=== PATIENT | female | born 1945 | race Caucasian/White ===

== ENCOUNTER 2016-03-03 05:32 | Inpatient (IN) | payer OTHER ==
[~2016-03-03] VITALS: Ht 162.6 cm; Wt 85.3 kg
[2016-03-03] VITALS (7 sets, daily range): BP systolic 93–130; BP diastolic 51–72
[~2016-03-03 05:32] MED LIST: AVELOX400 MG PO; Aspirin E.C. PO; BIOTENE ORALBAL42 GM MM; BIOTENE1000 ML MM; CALCIUM CARB 51 EACH PO; CALCIUM500 M4 PO; COLACE100 MG PO; DENTIVA SOFT L1 EACH MM; FLORASTOR250 MG PO; FUROSEMIDE20 MG PO; Flexeril PO; Fortical, Miacalcin ALT NARES; GABAPENTIN100 MG PO; IRON325 M1 PO; LISINOPRIL2.5 MG PO; LO-DOSE ASPIRIN81 M2 PO; MIRALAX255 GM PO; MORPHINE SULFAT15 M1 PO; MS CONTIN,ORAMO15 M1 PO; NEURONTIN100 MG PO; NEXIUM40 M1 PO; NEXIUM40 MG PO; OXYCONTIN10 MG PO; PREDNISONE10 MG PO; PREDNISONE5 MG PO; Percocet 5/325,Endoc PO; STOOL SOFTENER100 MG PO; SYSTANE ULTRA 015 ML BOTH EYES; TRIAMCINOLONE A15 GM TP; TYLENOL REGULA325 MG PO; VALIUM2 MG PO; VITAMIN D1000 INTUN PO; VITAMIN D32000 UNI1 PO; ZESTRIL2.5 MG PO; Zestril,Prinivil PO
[2016-03-04 03:44] VITALS: BP 131/60
[2016-03-04 08:24] VITALS: BP 137/65
[2016-03-04 11:39] VITALS: BP 122/59
[2016-03-04 12:05] LABS: HEMATOCRIT 24.9 % (36.0-46.0); MCV 88.6 FL (83-99)
[2016-03-04 12:33] LABS: ANION GAP 8 MEQ/L (2-14); CHLORIDE 102 MEQ/L (99-109); GFR ESTIMATE (CALCULATED) > 59 mL/min/; GLUCOSE 100 mg/dL (70-99); POTASSIUM 4.4 MEQ/L (3.7-5.4); SAMPLE HEMOLYSIS CHECK 1; SAMPLE ICTERIC CHECK 0; SAMPLE LIPEMIA CHECK 0; SODIUM 134 MEQ/L (136-147); UREA NITROGEN (BUN) 14 mg/dL (9-23)
[2016-03-04 15:36] VITALS: BP 112/54
[2016-03-04 20:08] VITALS: BP 112/54
[2016-03-05] VITALS (7 sets, daily range): BP systolic 107–140; BP diastolic 59–65
[2016-03-06 04:53] VITALS: BP 108/57
[2016-03-06 07:30] VITALS: BP 104/56
[2016-03-06] MEDS ORDERED: OXYCODONE HCL5 MG PO (09:26)
[2016-03-06] MEDS ORDERED: XARELTO10 MG PO (09:27)
[2016-03-06 11:57] VITALS: BP 115/59
== END 2016-03-06 15:07 | DRG 470 ==
LOC: 2SOUTH 05:32 → 3WEST 05:32 → 2SOUTH 08:48 → 3WEST 10:53 → 2SOUTH 10:56 → 3WEST 03-05 10:16 → 3EAST 03-05 15:30
PROVIDERS: Physician Assistant Surgical
PROC: 0SR9049 Replacement of Right Hip Joint with Ceramic on Polyethylene Synthetic Substitute, Cemented, Open Approach (ICD-10-PCS; principal; 2016-03-03)
DX: M16.11 Unilateral primary osteoarthritis, right hip (principal); I10 Essential (primary) hypertension; G89.29 Other chronic pain; M54.9 Dorsalgia, unspecified; M05.6 Rheumatoid arthritis with involvement of other organs and systems
CPT/HCPCS: 71020; 80048; 85014; 85018; 97530 GO; 97530 GP; C1713; J0131; J0690; J1100; J1170; J1885; J2250; J2405; J7050; J7120; J7512; S0020

== ENCOUNTER 2016-05-21 11:51 | Inpatient (IN) | payer OTHER ==
[~2016-05-21] VITALS: Ht 160 cm; Wt 93.0 kg
[~2016-05-21 11:51] MED LIST changes: +OXYCODONE HCL5 MG PO; +XARELTO10 MG PO
[2016-05-21 12:47] LABS: ADD MIUA? YES; BILIRUBIN NEGATIVE; BLOOD MODERATE; COLOR YELLOW ((YELLOW)); GLUCOSE (STRIP) NEGATIVE; KETONES NEGATIVE; LEUKOCYTES NEGATIVE; NITRITE NEGATIVE; PROTEIN (STRIP) NEGATIVE; SPECIFIC GRAVITY 1.018 (1.000-1.030)
[2016-05-21 12:49] LABS: BACTERIA NONE SEEN /HPF; EPITHELIAL CELLS NONE SEEN /HPF; MUCUS TRACE /LPF; RED BLOOD CELLS 20-30 /HPF (0-5); UCUL ADDED? NO; WHITE BLOOD CELLS 0-5 /HPF (0-5)
[2016-05-21 13:17] LABS: EOSINOPHIL (%) 0.2 % (0-5); HEMATOCRIT 31.5 % (36.0-46.0); IMMATURE GRANULOCYTE (%) 0.5 % (0.0-0.7); LYMPHOCYTE COUNT 0.4 K/uL (1.0-2.8); MCH 28.6 PG (29.0-34.0); MCHC 30.5 G/DL (30.0-36.0); MCV 93.8 FL (83-99); MEAN PLAT.VOLUME 9.7 uM^3 (9.5-12.4); MONOCYTE (%) 9.9 % (3-12); MONOCYTE COUNT 0.6 K/uL (0-0.8); NEUTROPHIL (%) 82.3 % (45-76); PLATELET COUNT 230 K/uL (156-360); RBC DIS.WIDTH-CV 16.2 % (11.8-14.6); RED BLOOD COUNT 3.36 M/uL (3.80-5.20); WHITE BLOOD COUNT 6.1 K/uL (4.1-10.2)
[2016-05-21 13:27] LABS: CHLORIDE 105 mEq/L (99-109); POTASSIUM 3.8 mEq/L (3.7-5.4); SODIUM 137 mEq/L (136-147)
[2016-05-21 13:29] LABS: GLUCOSE 109 mg/dL (70-99)
[2016-05-21 13:30] LABS: ANION GAP 8 MEQ/L (2-14)
[2016-05-21 13:31] LABS: INFLUENZA A VIRAL ANTIGEN NEGATIVE; INFLUENZA B VIRAL ANTIGEN NEGATIVE
[2016-05-21 13:31] LABS: TOTAL BILIRUBIN 0.9 mg/dL (0.0-1.0)
[2016-05-21 13:33] LABS: ALKALINE PHOSPHATASE 71 IU/L (3-129); GFR ESTIMATE (CALCULATED) > 59 mL/min/
[2016-05-21 13:34] LABS: UREA NITROGEN (BUN) 13 mg/dL (9-23)
[2016-05-21] MEDS ORDERED: LOW DOSE ASPIRI81 M1 PO (14:29)
[2016-05-21] MEDS ORDERED: DAILY VITE1 EAC1 PO (14:31)
[2016-05-21] MEDS ORDERED: ALDACTONE50 MG PO (14:53)
[2016-05-21 15:42] LABS: C-REACTIVE PROTEIN 125.1 MG/L (0-10)
[2016-05-21 16:08] LABS: D-DIMER ELISA > 4.00 mg/L FEU (< 0.57)
[2016-05-21 18:26] VITALS: BP 103/60
[2016-05-21 23:45] VITALS: BP 103/58
[2016-05-22] VITALS (9 sets, daily range): BP systolic 14–141; BP diastolic 51–72
[2016-05-22 05:43] LABS: ANION GAP 7 MEQ/L (2-14); CHLORIDE 107 MEQ/L (99-109); GFR ESTIMATE (CALCULATED) > 59 mL/min/; GLUCOSE 114 mg/dL (70-99); SAMPLE HEMOLYSIS CHECK 0; SAMPLE ICTERIC CHECK 0; SAMPLE LIPEMIA CHECK 0; SODIUM 140 MEQ/L (136-147); UREA NITROGEN (BUN) 16 mg/dL (9-23)
[2016-05-22 05:44] LABS: POTASSIUM 4.7 MEQ/L (3.7-5.4)
[2016-05-22 06:19] LABS: HEMATOCRIT 25.3 % (36.0-46.0); MCH 28.8 PG (29.0-34.0); MCHC 30.4 G/DL (30.0-36.0); MCV 94.8 FL (83-99); RBC DIS.WIDTH-CV 15.7 % (11.8-14.6); RBC DIS.WIDTH-SD 54.4 % (39-53)
[2016-05-22 06:48] LABS: RED BLOOD COUNT 2.67 M/uL (3.80-5.20); WHITE BLOOD COUNT 3.4 K/uL (4.1-10.2)
[2016-05-22 07:29] LABS: MEAN PLAT.VOLUME 10.4 uM^3 (9.5-12.4); PLAT.SUFFICIENCY DECREASED
[2016-05-22 07:43] LABS: PLATELET COUNT 139 K/uL (156-360)
[2016-05-22 10:15] LABS: C-REACTIVE PROTEIN 182.3 MG/L (0-10)
[2016-05-22 11:34] LABS: HEMATOCRIT 22.7 % (36.0-46.0); MCH 28.6 PG (29.0-34.0); MCHC 30.4 G/DL (30.0-36.0); MCV 94.2 FL (83-99); MEAN PLAT.VOLUME 10.3 uM^3 (9.5-12.4); PLATELET COUNT 142 K/uL (156-360); RBC DIS.WIDTH-CV 15.8 % (11.8-14.6); RBC DIS.WIDTH-SD 53.7 % (39-53); RED BLOOD COUNT 2.41 M/uL (3.80-5.20); WHITE BLOOD COUNT 2.4 K/uL (4.1-10.2)
[2016-05-22 12:30] LABS: ERTH.SED.RATE 32 MM/HR (0-30)
[2016-05-22 15:13] LABS: HEMATOCRIT 24.3 % (36.0-46.0); MCV 93.5 FL (83-99)
[2016-05-22 19:59] LABS: ADD MIUA? YES; BILIRUBIN NEGATIVE; BLOOD MODERATE; COLOR YELLOW ((YELLOW)); GLUCOSE (STRIP) NEGATIVE; KETONES 5; LEUKOCYTES NEGATIVE; NITRITE NEGATIVE; PROTEIN (STRIP) NEGATIVE; SPECIFIC GRAVITY 1.043 (1.000-1.030); UROBILINOGEN 0.2 MG/DL (0.2-1.0)
[2016-05-22 20:46] LABS: BACTERIA NONE SEEN /HPF; EPITHELIAL CELLS NONE SEEN /HPF; MUCUS TRACE /LPF; RED BLOOD CELLS 15-20 /HPF (0-5); WHITE BLOOD CELLS 0-5 /HPF (0-5)
[2016-05-22 21:30] LABS: MCV 92.2 FL (83-99)
[2016-05-23] VITALS (13 sets, daily range): BP systolic 101–140; BP diastolic 53–71
[2016-05-23 10:05] LABS: MCHC 31.9 G/DL (30.0-36.0); MCV 90.9 FL (83-99); MEAN PLAT.VOLUME 11.4 uM^3 (9.5-12.4); PLATELET COUNT 118 K/uL (156-360); RBC DIS.WIDTH-CV 15.2 % (11.8-14.6); RBC DIS.WIDTH-SD 50.4 % (39-53); WHITE BLOOD COUNT 2.4 K/uL (4.1-10.2)
[2016-05-23 10:06] LABS: RED BLOOD COUNT 3.52 M/uL (3.80-5.20)
[2016-05-23 10:15] LABS: ALKALINE PHOSPHATASE 63 IU/L (3-129); ANION GAP 9 MEQ/L (2-14); CHLORIDE 107 MEQ/L (99-109); GFR ESTIMATE (CALCULATED) > 59 mL/min/; GLUCOSE 119 mg/dL (70-99); POTASSIUM 4.1 MEQ/L (3.7-5.4); SAMPLE HEMOLYSIS CHECK 0; SAMPLE ICTERIC CHECK 0; SAMPLE LIPEMIA CHECK 0; SODIUM 139 MEQ/L (136-147); TOTAL BILIRUBIN 1.6 MG/DL (0.0-1.0); UREA NITROGEN (BUN) 17 mg/dL (9-23)
[2016-05-23 15:25] LABS: HEMATOCRIT 30.5 % (36.0-46.0); MCV 90.2 FL (83-99)
[2016-05-24 04:11] VITALS: BP 135/70
[2016-05-24 06:14] LABS: GFR ESTIMATE (CALCULATED) > 59 mL/min/; SAMPLE HEMOLYSIS CHECK 0; SAMPLE ICTERIC CHECK 0; SAMPLE LIPEMIA CHECK 0
[2016-05-24 06:34] LABS: HEMATOCRIT 29.4 % (36.0-46.0); MCH 28.6 PG (29.0-34.0); MCV 92.5 FL (83-99); MEAN PLAT.VOLUME 10.9 uM^3 (9.5-12.4); NRBC (%) 0.9 /100 WBC (0-0); RBC DIS.WIDTH-CV 15.4 % (11.8-14.6); RED BLOOD COUNT 3.18 M/uL (3.80-5.20); WHITE BLOOD COUNT 2.2 K/uL (4.1-10.2)
[2016-05-24 06:39] LABS: PLATELET COUNT 162 K/uL (156-360)
[2016-05-24 07:41] LABS: EOSINOPHIL (%) 1.4 % (0-5); IMMATURE GRANULOCYTE (%) 1.4 % (0.0-0.7); INSTRUMENT ABS NEUTROPHIL CT 1.5 K/uL; LYMPHOCYTE COUNT 0.4 K/uL (1.0-2.8); MONOCYTE (%) 11.4 % (3-12); MONOCYTE COUNT 0.3 K/uL (0-0.8); NEUTROPHIL (%) 68.1 % (45-76); NEUTROPHIL COUNT 1.5 K/uL (1.8-6.4)
[2016-05-24 08:19] VITALS: BP 167/86
[2016-05-24 11:25] LABS: ANION GAP 6 MEQ/L (2-14); CHLORIDE 109 MEQ/L (99-109); POTASSIUM 4.4 MEQ/L (3.7-5.4); SODIUM 140 MEQ/L (136-147); UREA NITROGEN (BUN) 21 mg/dL (9-23)
[2016-05-24 12:04] VITALS: BP 116/63
[2016-05-24 12:16] LABS: GLUCOSE 83 mg/dL (70-99)
[2016-05-24 16:53] VITALS: BP 118/58
[2016-05-24 19:38] VITALS: BP 115/55
[2016-05-25 06:14] LABS: ANION GAP 7 MEQ/L (2-14); CHLORIDE 110 MEQ/L (99-109); POTASSIUM 3.9 MEQ/L (3.7-5.4); SAMPLE HEMOLYSIS CHECK 0; SAMPLE ICTERIC CHECK 0; SAMPLE LIPEMIA CHECK 0; SODIUM 139 MEQ/L (136-147)
[2016-05-25 06:20] LABS: GFR ESTIMATE (CALCULATED) > 59 mL/min/; GLUCOSE 79 mg/dL (70-99); UREA NITROGEN (BUN) 15 mg/dL (9-23)
[2016-05-25 07:14] LABS: HEMATOCRIT 28.1 % (36.0-46.0); MCH 28.8 PG (29.0-34.0); RBC DIS.WIDTH-CV 15.5 % (11.8-14.6); RBC DIS.WIDTH-SD 52.2 % (39-53); RED BLOOD COUNT 3.02 M/uL (3.80-5.20)
[2016-05-25 07:18] LABS: EOSINOPHIL (%) 2.5 % (0-5); EOSINOPHIL COUNT 0.1 K/uL (0-0.3); INSTRUMENT ABS NEUTROPHIL CT 1.2 K/uL; LYMPHOCYTE COUNT 0.4 K/uL (1.0-2.8); MEAN PLAT.VOLUME 10.8 uM^3 (9.5-12.4); MONOCYTE (%) 13.9 % (3-12); MONOCYTE COUNT 0.3 K/uL (0-0.8); NEUTROPHIL (%) 60.7 % (45-76); NEUTROPHIL COUNT 1.2 K/uL (1.8-6.4); PLAT.SUFFICIENCY DECREASED
[2016-05-25 07:20] LABS: PLATELET COUNT 110 K/uL (156-360)
[2016-05-25 07:42] VITALS: BP 132/60
[2016-05-25 11:06] VITALS: BP 138/68
== END 2016-05-25 11:00 | disposition short-term general hospital (02) | DRG 539 ==
LOC: EME → EDBD 11:51 → EME 11:51 → 3EAST 14:00 → EDOF 14:00 → 3EAST 17:47
PROVIDERS: Emergency Medicine; Hospitalist; Physician Assistant
PROC: 30233N1 Transfusion of Nonautologous Red Blood Cells into Peripheral Vein, Percutaneous Approach (ICD-10-PCS; principal; 2016-05-22)
DX: M46.26 Osteomyelitis of vertebra, lumbar region (principal); S72.351A Displaced comminuted fracture of shaft of right femur, initial encounter for closed fracture; M97.01XA Periprosthetic fracture around internal prosthetic right hip joint, initial encounter; D62 Acute posthemorrhagic anemia; D59.1 Other autoimmune hemolytic anemias; W01.0XXA Fall on same level from slipping, tripping and stumbling without subsequent striking against object, initial encounter; R50.9 Fever, unspecified; R60.9 Edema, unspecified; M85.851 Other specified disorders of bone density and structure, right thigh; I25.10 Atherosclerotic heart disease of native coronary artery without angina pectoris; I10 Essential (primary) hypertension; K21.9 Gastro-esophageal reflux disease without esophagitis; G62.9 Polyneuropathy, unspecified; G89.29 Other chronic pain; M06.9 Rheumatoid arthritis, unspecified; Z96.641 Presence of right artificial hip joint; Y92.002 Bathroom of unspecified non-institutional (private) residence as the place of occurrence of the external cause; Z79.52 Long term (current) use of systemic steroids; Z79.82 Long term (current) use of aspirin; Z88.0 Allergy status to penicillin; Z88.1 Allergy status to other antibiotic agents; Z88.2 Allergy status to sulfonamides
CPT/HCPCS: 71010; 71275; 72132; 73502; 73552; 74177; 80048; 80053; 80202; 81003; 82272; 82565; 83605; 85014; 85018; 85025; 85027; 85379; 85651; 86078; 86140; 86850; 86900; 86901; 86920; 87040; 87086; 87502; 93005; 93970; 99281; 99285; J0692; J1644; J2270; J2930; J3370; J7030; J7050; J7120; J7512; P9016